=== PATIENT | female | born 1955 | race Caucasian/White ===

== ENCOUNTER 2017-12-23 16:24 | Observation (INO) | payer MEDICARE, MEDICAID ==
[~2017-12-23] VITALS: Ht 154.9 cm; Wt 50.0 kg
[2017-12-23] VITALS (8 sets, daily range): BP systolic 98–111; BP diastolic 47–55; PULSE 63–79; RESP 16–22; TEMP 97.8–97.9; O2SAT 96–99
[~2017-12-23 16:24] MED LIST: BIOT5000 PO; DIAZ5 PO; HYDR10SO PO; LUTE20CA PO; MAGN250T5 PO; MOME17I; NEXI40CA PO; OLIV500C PO; VITA100017 PO; ZOCO40TA PO; [UNRECOGNIZED DRUG - CODE] PO
[2017-12-23] MEDS ORDERED: SODIUM CHLOR 0.9% 1000 ML INJ 1,000 ML IV ONE (17:55)
[2017-12-23] MEDS ORDERED: SODIUM CHLORIDE 0.9% FLUSH 10 ML FLUSH IVF PRN (18:00)
--- NOTE | 2017-12-23 18:10 | PD ---
HPI Chief Complaint: Syncope/Near-Syncope Time Seen by Provider: 17:55 Travel History International Travel<30 days: No Contact w/Intl Traveler<30days: No Traveled to known affect area: No History of Present Illness HPI 62-year-old otherwise healthy female presents to the emergency room for evaluation of syncopal episode that occurred just prior to arrival. Patient was at a restaurant, eating food when she began to feel faint. She told her friends who lowered her to the ground. States she was out for about 2 minutes. When she woke up, she did not remember passing out. She has had sinus headache for the past several weeks with associated upper respiratory infection. She denies hitting her head or any other injuries. Patient denies any cardiac history other than irregular heartbeat and angina. States she had 2 episodes of short, fleeting chest pain this morning but associated it with stress because it occurred while she was in court. She had no shortness of breath, diaphoresis, radiation of symptoms, nausea, vomiting, or abdominal pain at that time. She has no chest pain currently. She denies any chronic medical conditions or daily medications. States she has always had low blood pressure. Patient states she has had a carotid ultrasound a little over one year ago and a stress test within one year. She does admit to smoking marijuana every day. 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) Hepatitis: No Hiatal Hernia: No Immune Disorder: Yes (fibromyalgia) Medical other: Yes (hx of viral menigitis) Musculoskeletal: Yes (arthritis neck and back problems) Neurologic: No Psychiatric: Yes (anxiety) Reproductive: No Respiratory: Yes (copd) Thyroid Disease: No Tetanus Vaccination: Unknown Influenza Vaccination: Yes Past Surgical History Abdominal Surgery: Yes (appendectomy) AICD: No Appendectomy: Yes Gynecologic Surgery: Yes (vulvar removal due to possible cancer cells hysterectomy) Hysterectomy: Yes Joint Replacement: No Oral Surgery: Yes Pacemaker: No Other Surgery: Yes Social History Alcohol Use: Yes (WINE OCC ) Tobacco Use: Yes Substance Use: Yes (MARIJUANA ) Allergies-Medications (Allergen,Severity, Reaction): Coded Allergies: aspirin (Unverified Allergy, Severe, all nsaids rich stomach, 12/23/17) bisacodyl (Unverified Allergy, Severe, pt states all stimulants causes lethargy n/v passing out, 12/23/17) chocolate flavor (Unverified Allergy, Severe, bowel irritation, 12/23/17) lactose (Unverified Allergy, Severe, bowel irritation, 12/23/17) prochlorperazine (Unverified Allergy, Severe, muscles become very rigid especially jaws, 12/23/17) diclofenac (Unverified Adverse Reaction, Intermediate, 12/23/17) etodolac (Unverified Adverse Reaction, Intermediate, 12/23/17) flurbiprofen (Unverified Adverse Reaction, Intermediate, 12/23/17) ibuprofen (Unverified Adverse Reaction, Intermediate, 12/23/17) indomethacin (Unverified Adverse Reaction, Intermediate, 12/23/17) ketoprofen (Unverified Adverse Reaction, Intermediate, 12/23/17) ketorolac (Unverified Adverse Reaction, Intermediate, 12/23/17) naproxen (Unverified Adverse Reaction, Intermediate, 12/23/17) oxaprozin (Unverified Adverse Reaction, Intermediate, 12/23/17) Reported Meds & Prescriptions Reported Meds & Active Scripts Active No Active Prescriptions or Reported Medications Review of Systems Except as stated in HPI: all other systems reviewed are Neg Physical Exam Narrative GENERAL: Well-nourished, well-developed female in no acute distress. Afebrile. Ambulatory. SKIN: Focused skin assessment warm/dry. HEAD: Normocephalic. EYES: No scleral icterus. No injection or drainage. NECK: Supple, trachea midline. No JVD or lymphadenopathy. CARDIOVASCULAR: Regular rate and rhythm without murmurs, gallops, or rubs. RESPIRATORY: Breath sounds equal bilaterally. No accessory muscle use. GASTROINTESTINAL: Abdomen soft, non-tender, nondistended. NEUROLOGICAL: Awake and alert. Motor and sensory grossly within normal limits. Five out of 5 muscle strength in all muscle groups. Normal speech. Data Data Last Documented VS Vital Signs Date Time Temp Pulse Resp B/P (MAP) Pulse Ox O2 Delivery O2 Flow Rate FiO2 12/23/17 19:15 71 16 100/49 (66) 99 Room Air 12/23/17 16:30 97.8 Orders Orders Electrocardiogram (12/23/17 ) Electrocardiogram (12/23/17 17:55) Complete Blood Count With Diff (12/23/17 17:55) Comprehensive Metabolic Panel (12/23/17 17:55) Ckmb (Isoenzyme) Profile (12/23/17 17:55) Troponin I (12/23/17 17:55) Act Partial Throm Time (Ptt) (12/23/17 17:55) Prothrombin Time / Inr (Pt) (12/23/17 17:55) Urinalysis - C+S If Indicated (12/23/17 17:55) Chest, Single Ap (12/23/17 17:55) Ct Brain W/O Iv Contrast(Rout) (12/23/17 17:55) Ecg Monitoring (12/23/17 17:55) Iv Access Insert/Monitor (12/23/17 17:55) Oximetry (12/23/17 17:55) Sodium Chloride 0.9% Flush (Ns Flush) (12/23/17 18:00) Sodium Chlor 0.9% 1000 Ml Inj (Ns 1000 M (12/23/17 17:55) Orthostatic Vital Signs (12/23/17 17:55) Labs Laboratory Tests Test 12/23/17 18:10 White Blood Count 9.4 TH/MM3 Red Blood Count 4.27 MIL/MM3 Hemoglobin 14.0 GM/DL Hematocrit 40.5 % Mean Corpuscular Volume 94.9 FL Mean Corpuscular Hemoglobin 32.8 PG Mean Corpuscular Hemoglobin Concent 34.5 % Red Cell Distribution Width 13.2 % Platelet Count 233 TH/MM3 Mean Platelet Volume 9.6 FL Neutrophils (%) (Auto) 60.9 % Lymphocytes (%) (Auto) 30.1 % Monocytes (%) (Auto) 6.1 % Eosinophils (%) (Auto) 2.0 % Basophils (%) (Auto) 0.9 % Neutrophils # (Auto) 5.7 TH/MM3 Lymphocytes # (Auto) 2.8 TH/MM3 Monocytes # (Auto) 0.6 TH/MM3 Eosinophils # (Auto) 0.2 TH/MM3 Basophils # (Auto) 0.1 TH/MM3 CBC Comment DIFF FINAL Differential Comment Prothrombin Time 10.2 SEC Prothromb Time International Ratio 1.0 RATIO Activated Partial Thromboplast Time 21.5 SEC Blood Urea Nitrogen 12 MG/DL Creatinine 0.65 MG/DL Random Glucose 113 MG/DL Total Protein 6.4 GM/DL Albumin 3.3 GM/DL Calcium Level 7.6 MG/DL Alkaline Phosphatase 71 U/L Aspartate Amino Transf (AST/SGOT) 25 U/L Alanine Aminotransferase (ALT/SGPT) 20 U/L Total Bilirubin 0.2 MG/DL Sodium Level 142 MEQ/L Potassium Level 3.2 MEQ/L Chloride Level 107 MEQ/L Carbon Dioxide Level 29.1 MEQ/L Anion Gap 6 MEQ/L Estimat Glomerular Filtration Rate 92 ML/MIN Total Creatine Kinase 52 U/L Troponin I LESS THAN 0.02 NG/ML MDM Medical Decision Making Medical Screen Exam Complete: Yes Emergency Medical Condition: Yes Medical Record Reviewed: Yes Differential Diagnosis Dehydration, orthostatic hypotension, cardiac etiology, subarachnoid hemorrhage Narrative Course 62-year-old female presents to the emergency room for evaluation of syncopal episode that occurred just prior to arrival. Patient felt faint and was lowered to the ground by her friends before passing out. She denies hitting her head or any other injuries. States she was out for about 2 minutes. No history of the same. Denies significant cardiac history. She only reports fleeting chest pain several hours prior to the incident. No chest pain currently or just prior to syncopal episode. IV access established and basic labs obtained. EKG shows sinus rhythm with a rate of [address] changes, signed off by my attending physician. Patient is slightly hypotensive, at 102/ 47 which she states is her normal. She is given 1 L of fluids. Orthostatic pressures are unremarkable. CBC is unremarkable. CMP only shows mild hypokalemia. Troponin is less than 0.02. Chest x-ray shows hyperinflation consistent with COPD. CT of the brain is negative. Patient remained slightly hypotensive as compared to previous after 1 L of fluids. Patient may have had vasovagal syncope or episodes of dehydration that she will be admitted for syncope workup. She is resistant to admission at first but finally agreed. I spoke to Dr. Land who agrees to admit this patient to her service. Diagnosis Primary Impression: Syncope Qualified Codes: R55 - Syncope and collapse Admitting Information Admitting Physician Requests: Observation Scripts No Active Prescriptions or Reported Meds Condition: Stable Beth Verdugo Dec 23, 2017 18:10
--- NOTE | 2017-12-23 18:26 | RADRPT ---
EXAM DATE/TIME: 12/23/2017 18:12 [facility] COMPARISON: No previous studies available for comparison. INDICATIONS : Syncopal episode today MEDICAL HISTORY : None. SURGICAL HISTORY : None. ENCOUNTER: Initial ACUITY: 1 day PAIN SCORE: 0/10 LOCATION: Bilateral chest FINDINGS: Hyperinflation of the lungs is noted consistent with COPD. The heart is normal. The pulmonary vascula r pattern is normal. No focal infiltrate is noted. CONCLUSION: 1. Hyperinflation of the lungs consistent with COPD. 2. No pulmonary edema or focal pulmonary infiltrate. Castro Rose MD on December 23, 2017 at 18:22 Board Certified Radiologist. This report was verified electronically.
[2017-12-23 18:31] LABS: AUTOMATED NEUTROPHIL # 5.7 TH/MM3 (1.8-7.7); BASOPHIL # 0.1 TH/MM3 (0-0.2); BASOPHIL % 0.9 % (0.0-2.0); EOSINOPHIL # 0.2 TH/MM3 (0-0.4); HEMATOCRIT 40.5 % (35.0-46.0); LYMPH % 30.1 % (9.0-44.0); LYMPHOCYTE # 2.8 TH/MM3 (1.0-4.8); MEAN CELL VOLUME 94.9 FL (80.0-100.0); MEAN CORPUSCULAR HEMOGLOBIN 32.8 PG (27.0-34.0); MEAN CORPUSCULAR HGB CONC 34.5 % (32.0-36.0); MEAN PLATELET VOLUME 9.6 FL (7.0-11.0); MONO % 6.1 % (0.0-8.0); MONOCYTE # 0.6 TH/MM3 (0-0.9); NEUT % 60.9 % (16.0-70.0); PLATELET COUNT 233 TH/MM3 (150-450); RED BLOOD COUNT 4.27 MIL/MM3 (4.00-5.30); RED CELL DISTRIBUTION WIDTH 13.2 % (11.6-17.2); WHITE BLOOD COUNT 9.4 TH/MM3 (4.0-11.0)
[2017-12-23 18:43] LABS: PROTHROMBIN TIME - PATIENT 10.2 SEC (9.8-11.6)
[2017-12-23 18:49] LABS: ALBUMIN 3.3 GM/DL (3.4-5.0); ALKALINE PHOSPHATASE 71 U/L (45-117); ALT (GPT) 20 U/L (10-53); AST (GOT) 25 U/L (15-37); BICARBONATE 29.1 MEQ/L (21.0-32.0); BLOOD UREA NITROGEN 12 MG/DL (7-18); CALCIUM 7.6 MG/DL (8.5-10.1); CHLORIDE 107 MEQ/L (98-107); CREATININE 0.65 MG/DL (0.50-1.00); GLOMERULAR FILTRATION RATE 92 ML/MIN (>89); GLUCOSE,RANDOM 113 MG/DL (74-106); SODIUM (NA) 142 MEQ/L (136-145); TOTAL BILIRUBIN ADULT 0.2 MG/DL (0.2-1.0); TOTAL PROTEIN 6.4 GM/DL (6.4-8.2); TROPONIN I LESS THAN 0.02 NG/ML (0.02-0.05)
--- NOTE | 2017-12-23 18:54 | RADRPT ---
EXAM DATE/TIME: 12/23/2017 18:37 [facility] COMPARISON: No previous studies available for comparison. INDICATIONS : Syncopal episode,headache RADIATION DOSE: 56.35 CTDIvol (mGy) MEDICAL HISTORY : Cardiovascular disease. Chronic obstructive pulmonary disease. SURGICAL HISTORY : Hysterectomy. ENCOUNTER: Initial ACUITY: 1 day PAIN SCALE: 5/10 LOCATION: cranial TECHNIQUE: Multiple contiguous axial images were obtained of the head. Using automated exposure control and adj ustment of the mA and/or kV according to patient size, radiation dose was kept as low as reasonably a chievable to obtain optimal diagnostic quality images. DICOM format image data is available electro nically for review and comparison. FINDINGS: CEREBRUM: The ventricles are normal for age. No evidence of midline shift, mass lesion, hemorrhage or acute in farction. No extra-axial fluid collections are seen. POSTERIOR FOSSA: The cerebellum and brainstem are intact. The 4th ventricle is midline. The cerebellopontine angle i s unremarkable. EXTRACRANIAL: The visualized portion of the orbits is intact. SKULL: The calvaria is intact. No evidence of skull fracture. CONCLUSION: No acute disease. Castro Rose MD on December 23, 2017 at 18:51 Board Certified Radiologist. This report was verified electronically.
[2017-12-23] MEDS ORDERED: SODIUM CHLORIDE 0.9% FLUSH 10 ML FLUSH IV FLUSH PRN (21:15)
[2017-12-23] MEDS ORDERED: POTASSIUM CHLORIDE 10 MEQ CONTROLLED RELEASE TAB PO ONE (21:15)
[2017-12-23] MEDS ORDERED: RESP: ALBUTEROL 2.5 MG/IPRATROPIUM 0.5 MG NEB (PRN) NEB (21:15)
--- NOTE | 2017-12-23 21:16 | EKG ---
Date Performed: 12/23/2017 Time Performed: 16:38:28 PTAGE: 62 years EKG: Sinus rhythm POSSIBLE RIGHT ATRIAL ENLARGEMENT INCOMPLETE RIGHT BUNDLE BRANCH BLOCK BORDERLINE ECG No significant change from prior electrocardiogram. PREVIOUS TRACING : 11/29/2014 10.52 DOCTOR: Mark Florence Interpretating Date/Time 12/23/2017 21:16:22
[2017-12-23] MEDS: HEPARIN SODIUM - SQ 10,000 UNITS/ML VIAL SQ SCH (21:39)
[2017-12-23 21:53] LABS: BILIRUBIN, URINE NEG (NEG); BLOOD, URINE NEG (NEG); GLUCOSE,URINE NEG (NEG); KETONE, URINE NEG (NEG); MUCUS URINE FEW /lpf (OCC); NITRITE,URINE NEG (NEG); URINE COLOR LIGHT-YELLOW (YELLW/STRAW); URINE LEUKOCYTE ESTERASE NEG (NEG)
[2017-12-23] MEDS ORDERED: SODIUM CHLOR 0.9% 1000 ML INJ 1,000 ML IV SCH (22:00)
--- NOTE | 2017-12-23 22:01 | HHI.HP ---
[facility] Service [facility] Primary Care Physician Erika Horner M.D. Admission Diagnosis syncope Diagnoses: Travel History International Travel<30 Days: No Contact w/Intl Traveler <30 Da: No Traveled to Known Affected Are: No History of Present Illness 62-year-old female with a past medical history significant for unspecified irregular heart beat, angina and hyperlipidemia presents to the emergency department for evaluation of a syncopal episode. The patient reports over the last year she is a part approximately 2-3 of these episodes where she feels dizzy, feels as though the room is swaying around her, and has to lie down for approximately an hour until she feels like herself again. Today, the patient was sitting on a stool at a friend's birthday democrat after having 2 sips of alcohol when she turned white, felt lightheaded/dizzy and slumped to the ground of the stool. She was caught by a friend. She did not suffer head trauma. Positive loss of consciousness. She has no memory of the event. She denies urinary/fecal incontinence. The episode was followed by a couple minutes of confusion. She does have a history of a URI with diarrhea that stopped 2 days ago. She also reports persistent dizziness with horizontal head movement. Review of Systems Except as stated in HPI: all other systems reviewed are Neg Past Family Social History Past Medical History Irregular heartbeat, unspecified - lab director is Dr. Lopez Angina Hyperlipidemia, noncompliant with statin Past Surgical History Hysterectomy Tonsillectomy Appendectomy Reported Medications Reported Meds & Active Scripts Active No Active Prescriptions or Reported Medications Allergies: Coded Allergies: aspirin (Unverified Allergy, Severe, all nsaids rich stomach, 12/23/17) bisacodyl (Unverified Allergy, Severe, pt states all stimulants causes lethargy n/v passing out, 12/23/17) chocolate flavor (Unverified Allergy, Severe, bowel irritation, 12/23/17) lactose (Unverified Allergy, Severe, bowel irritation, 12/23/17) prochlorperazine (Unverified Allergy, Severe, muscles become very rigid especially jaws, 12/23/17) diclofenac (Unverified Adverse Reaction, Intermediate, 12/23/17) etodolac (Unverified Adverse Reaction, Intermediate, 12/23/17) flurbiprofen (Unverified Adverse Reaction, Intermediate, 12/23/17) ibuprofen (Unverified Adverse Reaction, Intermediate, 12/23/17) indomethacin (Unverified Adverse Reaction, Intermediate, 12/23/17) ketoprofen (Unverified Adverse Reaction, Intermediate, 12/23/17) ketorolac (Unverified Adverse Reaction, Intermediate, 12/23/17) naproxen (Unverified Adverse Reaction, Intermediate, 12/23/17) oxaprozin (Unverified Adverse Reaction, Intermediate, 12/23/17) Family History Mother with diabetes mellitus. Social History Smokes approximately three quarters of a pack per day. Positive marijuana. Occasional alcohol. Denies other illicit drugs. Physical Exam Vital Signs Vital Signs Date Time Temp Pulse Resp B/P (MAP) Pulse Ox O2 Delivery O2 Flow Rate FiO2 12/23/17 21:49 12/23/17 20:00 74 16 106/55 (72) 99 Room Air 12/23/17 19:15 71 16 100/49 (66) 99 Room Air 12/23/17 18:05 74 18 98/49 (65) 77 17 105/54 (71) 85 20 109/52 (71) 12/23/17 18:03 96 Room Air 12/23/17 18:00 72 16 109/52 (71) 99 Room Air 12/23/17 17:30 74 22 98/49 (65) 99 12/23/17 16:30 97.8 79 18 102/47 (65) 99 Physical Exam GENERAL: Thin, female sitting up in bed SKIN: No rashes, ecchymoses or lesions. Cool and dry. HEAD: Atraumatic. Normocephalic. No temporal or scalp tenderness. EYES: Pupils equal round and reactive. Extraocular motions intact. No scleral icterus. No injection or drainage. ENT: Nose without bleeding, purulent drainage or septal hematoma. Throat without erythema, tonsillar hypertrophy or exudate. Uvula midline. Airway patent. NECK: Trachea midline. No JVD or lymphadenopathy. Supple, nontender, no meningeal signs. CARDIOVASCULAR: Regular rate and rhythm without murmurs, gallops, or rubs. RESPIRATORY: Clear to auscultation. Breath sounds equal bilaterally. No wheezes , rales, or rhonchi. GASTROINTESTINAL: Abdomen soft, non-tender, nondistended. No hepato-splenomegaly , or palpable masses. No guarding. MUSCULOSKELETAL: Extremities without clubbing, cyanosis, or edema. No joint tenderness, effusion, or edema noted. No calf tenderness. NEUROLOGICAL: Awake and alert. Cranial nerves II through XII intact. Motor and sensory grossly within normal limits. Normal speech. Laboratory Laboratory Tests Test 12/23/17 18:10 12/23/17 21:30 White Blood Count 9.4 Red Blood Count 4.27 Hemoglobin 14.0 Hematocrit 40.5 Mean Corpuscular Volume 94.9 Mean Corpuscular Hemoglobin 32.8 Mean Corpuscular Hemoglobin Concent 34.5 Red Cell Distribution Width 13.2 Platelet Count 233 Mean Platelet Volume 9.6 Neutrophils (%) (Auto) 60.9 Lymphocytes (%) (Auto) 30.1 Monocytes (%) (Auto) 6.1 Eosinophils (%) (Auto) 2.0 Basophils (%) (Auto) 0.9 Neutrophils # (Auto) 5.7 Lymphocytes # (Auto) 2.8 Monocytes # (Auto) 0.6 Eosinophils # (Auto) 0.2 Basophils # (Auto) 0.1 CBC Comment DIFF FINAL Differential Comment Prothrombin Time 10.2 Prothromb Time International Ratio 1.0 Activated Partial Thromboplast Time 21.5 Blood Urea Nitrogen 12 Creatinine 0.65 Random Glucose 113 Total Protein 6.4 Albumin 3.3 Calcium Level 7.6 Alkaline Phosphatase 71 Aspartate Amino Transf (AST/SGOT) 25 Alanine Aminotransferase (ALT/SGPT) 20 Total Bilirubin 0.2 Sodium Level 142 Potassium Level 3.2 Chloride Level 107 Carbon Dioxide Level 29.1 Anion Gap 6 Estimat Glomerular Filtration Rate 92 Total Creatine Kinase 52 Troponin I LESS THAN 0.02 Result Diagram: 12/23/17180912/23/171809 Caprini VTE Risk Assessment Caprini VTE Risk Assessment: Mod/High Risk (score >= 2) Caprini Risk Assessment Model Point Value = 1 Point Value = 2 Point Value = 3 Point Value = 5 Age 41-60 Minor surgery BMI > 25 kg/m2 Swollen legs Varicose veins or History of unexplained or recurrent spontaneous Oral contraceptives or hormone replacement Sepsis (< 1 month) Serious lung disease, including pneumonia (< 1 month) Abnormal pulmonary function Acute myocardial infarction Congestive heart failure (< 1 month) History of inflammatory bowel disease Medical patient at bed rest Age 61-74 Arthroscopic surgery Major open surgery (> 45 min) Laparoscopic surgery (> 45 min) Malignancy Confined to bed (> 72 hours) Immobilizing plaster cast Central venous access Age >= 75 History of VTE Family history of VTE Factor V Leiden Prothrombin [id number] Lupus anticoagulant Anticardiolipin antibodies Elevated serum homocysteine Heparin-induced thrombocytopenia Other congenital or acquired thrombophilia Stroke (< 1 month) Elective arthroplasty Hip, pelvis, or leg fracture Acute spinal cord injury (< 1 month) Prophylaxis Regimen Total Risk Factor Score Risk Level Prophylaxis Regimen 0-1 Low Early ambulation 2 Moderate Order ONE of the following: *Sequential Compression Device (SCD) *Heparin 5000 units SQ BID 3-4 Higher Order ONE of the following medications: *Heparin 5000 units SQ TID *Enoxaparin/Lovenox 40 mg SQ daily (WT < 150 kg, CrCl > 30 mL/min) *Enoxaparin/Lovenox 30 mg SQ daily (WT < 150 kg, CrCl > 10-29 mL/min) *Enoxaparin/Lovenox 30 mg SQ BID (WT < 150 kg, CrCl > 30 mL/min) AND/OR *Sequential Compression Device (SCD) 5 or more Highest Order ONE of the following medications: *Heparin 5000 units SQ TID (Preferred with Epidurals) *Enoxaparin/Lovenox 40 mg SQ daily (WT < 150 kg, CrCl > 30 mL/min) *Enoxaparin/Lovenox 30 mg SQ daily (WT < 150 kg, CrCl > 10-29 mL/min) *Enoxaparin/Lovenox 30 mg SQ BID (WT < 150 kg, CrCl > 30 mL/min) AND *Sequential Compression Device (SCD) Assessment and Plan Assessment and Plan Assessment/plan: 1. Syncopal event/dizziness Unclear etiology, neurologic versus cardiac Echo pending - patient with history of "irregular heartbeat", denies A. fib, not currently anticoagulated Carotid ultrasound pending Neurology consulted, appreciate recommendations Physical therapy consulted May be secondary to hypotension, although patient states she has chronic hypotension IV fluid hydration FEN Regular diet Electrolytes: s/p repletion of K, f/u BMP NS at 70 cc/hr Heparin Tanya Land MD Dec 23, 2017 22:01
[2017-12-24 02:00] VITALS: PULSE 68
[2017-12-24] MEDS ORDERED: ACETAMINOPHEN/HYDROcodone 325 MG/5 MG TAB PO ONE (02:00)
[2017-12-24] MEDS ORDERED: CALCIUM CARBONATE 500 MG CHEWABLE TAB CHEW ONE (04:15)
[2017-12-24 05:22] VITALS: BP 99/45; PULSE 60; RESP 18; TEMP 97.9; O2SAT 97
[2017-12-24] MEDS: HEPARIN SODIUM - SQ 10,000 UNITS/ML VIAL SQ SCH (06:15)
[2017-12-24 07:58] VITALS: BP_SYST 103; BP_SYST 108; BP_SYST 109; BP_DIAS 46; BP_DIAS 53; BP_DIAS 55; PULSE 60; RESP 19; TEMP 98; O2SAT 98
[2017-12-24] MEDS ORDERED: SODIUM CHLORIDE 0.9% FLUSH 10 ML FLUSH IV FLUSH SCH (09:00)
--- NOTE | 2017-12-24 09:35 | RADRPT ---
EXAM DATE/TIME: 12/24/2017 08:54 [facility] COMPARISON: No previous studies available for comparison. INDICATIONS : Syncope. MEDICAL HISTORY : Chronic obstructive pulmonary disease. Gastroesophageal reflux disease. Alzheimer's. Bilateral catara cts. Irregular heartbeat. Arthritis. Anxiety. Hep C. Uvula Cancer. Chemotherapy. Fibromyalgia. Blood transfusion. Hyperlipidemia. SURGICAL HISTORY : Hysterectomy. Appendectomy. Tonsillectomy. ENCOUNTER: Initial ACUITY: 1 day PAIN SCORE: 0/10 LOCATION: Bilateral neck PEAK SYSTOLIC VELOCITIES (cm/sec): ICA/CCA RATIO: Right: 1.3 Left: 0.9 ICA: Right: 108 Left: 89 CCA: Right: 83 Left: 98 ECA: Right: 79 Left: 108 VERTEBRAL: Right: 63 antegrade Left: 71 antegrade Elevated flow velocities and ICA/CCA ratios have been found to correlate with increased degrees of vessel stenosis, calculated as percentage of diameter relative to a normal segment of distal ICA/CCA FINDINGS: RIGHT CAROTID: No significant stenosis is visualized. Mild plaque is present in the carotid bulb. The waveforms are within normal limits. LEFT CAROTID: No significant stenosis is visualized. Mild plaque is present in the carotid bulb. The waveforms are within normal limits. VERTEBRAL ARTERIES: Antegrade flow is seen in both vertebral arteries. MISCELLANEOUS: None. CONCLUSION: Mild plaque with no evidence of stenosis. Akbar Shaw MD on December 24, 2017 at 9:27 Board Certified Radiologist. This report was verified electronically.
--- NOTE | 2017-12-24 09:42 | HHI.PR ---
Subjective Remarks Follow up for syncope. Patient is currently doing well. No fever, chills. Ambulating, tolerating diet well. Objective Vitals Vital Signs Date Time Temp Pulse Resp B/P (MAP) Pulse Ox O2 Delivery O2 Flow Rate FiO2 12/24/17 07:58 98.0 60 19 103/46 (65) 98 108/53 (71) 109/55 (73) 12/24/17 05:22 97.9 60 18 99/45 (63) 97 12/24/17 02:00 68 12/23/17 23:18 97.9 63 18 111/54 (73) 98 109/55 (73) 12/23/17 21:49 12/23/17 20:00 74 16 106/55 (72) 99 Room Air 12/23/17 19:15 71 16 100/49 (66) 99 Room Air 12/23/17 18:05 74 18 98/49 (65) 77 17 105/54 (71) 85 20 109/52 (71) 12/23/17 18:03 96 Room Air 12/23/17 18:00 72 16 109/52 (71) 99 Room Air 12/23/17 17:30 74 22 98/49 (65) 99 12/23/17 16:30 97.8 79 18 102/47 (65) 99 I/O 12/23/17 12/23/17 12/23/17 12/24/17 12/24/17 12/24/17 07:00 15:00 23:00 07:00 15:00 23:00 Intake Total 1000 ml 600 ml Balance 1000 ml 600 ml Intake Oral 600 ml IV Total 1000 ml # Voids 2 Result Diagram: 12/23/17180912/23/171809 Imaging Last Impressions Carotid Artery Ultrasound 12/24/17 0000 Signed Impressions: Service Date/Time: December 08:54 - CONCLUSION: Mild plaque with no evidence of stenosis. Akbar Shaw MD Head CT [id number]/23/171754 Signed Impressions: Service Date/Time: Saturday, December 23, 2017 18:37 - CONCLUSION: No acute disease. Castro Rose MD Chest X-Ray [id number]/23/171754 Signed Impressions: Service Date/Time: Saturday, December 23, 2017 18:12 - CONCLUSION: 1. Hyperinflation of the lungs consistent with COPD. 2. No pulmonary edema or focal pulmonary infiltrate. Castro Rose MD Objective Remarks GENERAL: AOX3 NAD. SKIN: Warm and dry. HEAD: Normocephalic. EYES: No scleral icterus. No injection or drainage. NECK: Supple, trachea midline. No JVD or lymphadenopathy. CARDIOVASCULAR: Regular rate and rhythm without murmurs, gallops, or rubs. RESPIRATORY: Breath sounds equal bilaterally. No accessory muscle use. GASTROINTESTINAL: Abdomen soft, non-tender, nondistended. MUSCULOSKELETAL: No cyanosis, or edema. BACK: Nontender without obvious deformity. No CVA tenderness. Procedures None. A/P Problem List: (1) Syncope ICD Code: R55 - Syncope and collapse Assessment and Plan Syncope - Patient recent had diarrhea and she did not eat or drink well. - Syncope is likely due to hypovolemia. - CT head which is not usually necessary for syncope work up is negative. Carotid US is also negative. - CXR shows hyperinflation. - Mild hypokalemia - Likely due to recent diarrhea - Will replace with PO KCL Full code. Discharge patient to home Condition on discharge: Improved Regular Diet as tolerated Ad Samara activity Rx written: K-tab 20meq BID X 3 days. Follow-up with primary care physician within one week. BMP in one week. Jasen Ng DO Dec 24, 2017 09:42
[2017-12-24] MEDS ORDERED: POTA1TAB4 PO (09:44)
== END 2017-12-24 10:55 | disposition home or self-care (01) ==
LOC: NEPC 16:24 → NEDA 20:19 → NEPHCDU 21:51
PROVIDERS: ADMIT Hospitalist; ATTEND Hospitalist
DX: R55 Syncope and collapse (principal); E87.6 Hypokalemia; E86.1 Hypovolemia; R19.7 Diarrhea, unspecified; R07.9 Chest pain, unspecified; I49.9 Cardiac arrhythmia, unspecified; E78.00 Pure hypercholesterolemia, unspecified; J44.9 Chronic obstructive pulmonary disease, unspecified; R11.0 Nausea; G62.9 Polyneuropathy, unspecified; M79.7 Fibromyalgia; K21.9 Gastro-esophageal reflux disease without esophagitis; R94.31 Abnormal electrocardiogram [ECG] [EKG]; Z87.11 Personal history of peptic ulcer disease
CPT/HCPCS: 70450; 71045; 80053; 81001; 82550; 84484; 85025; 85610; 85730; 93005; 93880; 96360; 96361; 96372; 97161; 99285; G0378; G8987; G8988; J1644; J7030

== ENCOUNTER 2018-03-21 12:37 | Emergency (ER) | payer MEDICARE, MEDICAID ==
[~2018-03-21 12:37] MED LIST changes: -BIOT5000 PO; -DIAZ5 PO; -HYDR10SO PO; -LUTE20CA PO; -MAGN250T5 PO; -MOME17I; -NEXI40CA PO; -OLIV500C PO; +POTA1TAB4 PO; -VITA100017 PO; -ZOCO40TA PO; -[UNRECOGNIZED DRUG - CODE] PO
[2018-03-21 12:52] VITALS: BP 122/57; PULSE 75; RESP 16; TEMP 98.2; O2SAT 99
[2018-03-21] MEDS ORDERED: SODIUM CHLORIDE 0.9% FLUSH 10 ML FLUSH IVF PRN (14:15)
[2018-03-21] MEDS ORDERED: SODIUM CHLOR 0.9% 1000 ML INJ 1,000 ML IV ONE (14:15)
[2018-03-21] MEDS ORDERED: DEXAMETHASONE SOD PHOS 20 MG/5 ML VIAL IV PUSH ONE (14:15)
[2018-03-21] MEDS: RESP: ALBUTEROL 2.5 MG/IPRATROPIUM 0.5 MG NEB (SCH) INH ×2 (14:46→14:47)
--- NOTE | 2018-03-21 14:49 | PD ---
HPI Chief Complaint: Cold / Flu Symptoms Time Seen by Provider: 14:03 Travel History International Travel<30 days: No Contact w/Intl Traveler<30days: No Traveled to known affect area: No History of Present Illness HPI 62-year-old female presents emergency department with complaints of 10 weeks of "the flu". She states recurrent episodes of upper respiratory symptoms including cough, wheezing, which her primary care physician has repeatedly treated with Flonase, Augmentin, and Bromfed cough medicine. Patient is a long-term smoker and knows that she has COPD and emphysema. She has used Advair once in the past when she was sick, but currently uses no form of inhaler, or COPD treatment. Patient has not been seen by wine specialist. Patient states her cough is productive of white sputum. She denies fever, chills, sore throat or postnasal drip. She does have ear pressure bilaterally. Patient was called in a prescription for Augmentin, Bromfed, and Flonase yesterday by her PCP. She is here because she cannot sleep at night secondary to her cough and wheeze. She denies nausea, vomiting or heartburn. She has multiple allergies including aspirin, bisacodyl, chocolate, diclofenac, etodolac , flurbiprofen, ibuprofen, indomethacin, ketoprofen, ketorolac, lactulose, Naprosyn, oxaprozin, and prochlorperazine. PFSH Past Medical History Arthritis: Yes Blood Disorders: No Heart Rhythm Problems: Yes (IRREGULAR HEART BEAT ) Cancer: Yes (Hep C., uvula) Cardiovascular Problems: Yes High Cholesterol: Yes Chemotherapy: Yes (pt states she had chemo for Hep C in [id number]) Chest Pain: Yes COPD: Yes Diabetes: No Diminished Hearing: No Endocrine: No Gastrointestinal Disorders: Yes (reflux hx of stomach ulcer problems with nausea) GERD: Yes Genitourinary: Yes (spastic bladder) Hepatitis: No Hiatal Hernia: No Immune Disorder: Yes (fibromyalgia) Musculoskeletal: Yes (fibromyalgia, arthritis neck and back problems) Neurologic: Yes (alzheimers) Psychiatric: Yes (anxiety) Reproductive: No Respiratory: Yes (copd) Thyroid Disease: No Past Surgical History Abdominal Surgery: Yes (appendectomy) AICD: No Appendectomy: Yes Gynecologic Surgery: Yes (vulvar removal due to possible cancer cells hysterectomy) Hysterectomy: Yes Joint Replacement: No Oral Surgery: Yes Pacemaker: No Other Surgery: Yes Social History Alcohol Use: Yes (WINE OCC ) Tobacco Use: Yes Substance Use: Yes (MARIJUANA daily) Allergies-Medications (Allergen,Severity, Reaction): Coded Allergies: aspirin (Unverified Allergy, Severe, all nsaids rich stomach, 12/23/17) bisacodyl (Unverified Allergy, Severe, pt states all stimulants causes lethargy n/v passing out, 12/23/17) chocolate flavor (Unverified Allergy, Severe, bowel irritation, 12/23/17) lactose (Unverified Allergy, Severe, bowel irritation, 12/23/17) prochlorperazine (Unverified Allergy, Severe, muscles become very rigid especially jaws, 12/23/17) diclofenac (Unverified Adverse Reaction, Intermediate, 12/23/17) etodolac (Unverified Adverse Reaction, Intermediate, 12/23/17) flurbiprofen (Unverified Adverse Reaction, Intermediate, 12/23/17) ibuprofen (Unverified Adverse Reaction, Intermediate, 12/23/17) indomethacin (Unverified Adverse Reaction, Intermediate, 12/23/17) ketoprofen (Unverified Adverse Reaction, Intermediate, 12/23/17) ketorolac (Unverified Adverse Reaction, Intermediate, 12/23/17) naproxen (Unverified Adverse Reaction, Intermediate, 12/23/17) oxaprozin (Unverified Adverse Reaction, Intermediate, 12/23/17) Reported Meds & Prescriptions Reported Meds & Active Scripts Active K-Tab (Potassium Chloride) 20 Meq Tab 20 Meq PO BID Review of Systems Except as stated in HPI: all other systems reviewed are Neg General / Constitutional: No: Fever, Chills Eyes: No: Visual changes HENT: Positive: Headaches, Rhinitis, Rhinorrhea, Congestion, Earache, No: Vertigo, Lightheadedness, Sore Throat, Nosebleed, Neck Stiffness, Neck Pain, Dental Difficulties, Ear Discharge Cardiovascular: Positive: Dyspnea on exertion, No: Chest Pain or Discomfort, Palpitations, Irregular Rhythm, Tachycardia Respiratory: Positive: Cough, Shortness of Breath, Wheezing, No: Sneezing, Orthopnea, Hemoptysis, Stridor, Night Sweats, Pleuritic Pain Gastrointestinal: No: Abdominal Pain Genitourinary: No: Dysuria Musculoskeletal: No: Pain Skin: No Rash Neurologic: No: Weakness Psychiatric: No: Depression Endocrine: No: Polydipsia Hematologic/Lymphatic: No: Easy Bruising Physical Exam Narrative GENERAL: Patient is thin and in mild distress. She has a wet cough with audible wheezing. SKIN: Warm and dry. Normal color. Normal turgor HEAD: Atraumatic. Normocephalic. EYES: Pupils equal and round. No scleral icterus. No injection or drainage. ENT: No nasal bleeding or discharge. Mucous membranes pink and moist. TMs are somewhat dull bilaterally but otherwise unremarkable. No sinus tenderness to palpation. Posterior pharynx is unremarkable. Airway is patent. NECK: Trachea midline. Supple and nontender. CARDIOVASCULAR: Regular rate and rhythm. RESPIRATORY: No accessory muscle use. Moderate wheezes and mild rales throughout to auscultation. Breath sounds equal bilaterally. GASTROINTESTINAL: Abdomen soft, non-tender, nondistended. Hepatic and splenic margins not palpable. MUSCULOSKELETAL: Extremities without clubbing, cyanosis, or edema. No obvious deformities. NEUROLOGICAL: Awake and alert. No obvious cranial nerve deficits. Motor grossly within normal limits. Five out of 5 muscle strength in the arms and legs. Normal speech. PSYCHIATRIC: Appropriate mood and affect; insight and judgment normal. Data Data Last Documented VS Vital Signs Date Time Temp Pulse Resp B/P (MAP) Pulse Ox O2 Delivery O2 Flow Rate FiO2 03/21/18 15:17 75 25 138/63 (88) 100 Room Air 03/21/18 12:52 98.2 Orders Orders Complete Blood Count With Diff (03/21/18 14:13) Comprehensive Metabolic Panel (03/21/18 14:13) Iv Access Insert/Monitor (03/21/18 14:13) Ecg Monitoring (03/21/18 14:13) Oximetry (03/21/18 14:13) Oxygen Administration (03/21/18 14:13) Chest, Pa & Lat (03/21/18 14:13) Sodium Chloride 0.9% Flush (Ns Flush) (03/21/18 14:15) Albuterol-Ipratropium Neb (Duoneb Neb) (03/21/18 14:15) Sodium Chlor 0.9% 1000 Ml Inj (Ns 1000 M (03/21/18 14:15) Dexamethasone Inj (Decadron Inj) (03/21/18 14:15) Labs Laboratory Tests Test 03/21/18 15:08 White Blood Count 5.1 TH/MM3 Red Blood Count 4.40 MIL/MM3 Hemoglobin 14.0 GM/DL Hematocrit 41.2 % Mean Corpuscular Volume 93.6 FL Mean Corpuscular Hemoglobin 31.8 PG Mean Corpuscular Hemoglobin Concent 34.0 % Red Cell Distribution Width 12.9 % Platelet Count 207 TH/MM3 Mean Platelet Volume 9.0 FL Neutrophils (%) (Auto) 55.9 % Lymphocytes (%) (Auto) 28.9 % Monocytes (%) (Auto) 10.8 % Eosinophils (%) (Auto) 3.4 % Basophils (%) (Auto) 1.0 % Neutrophils # (Auto) 2.8 TH/MM3 Lymphocytes # (Auto) 1.5 TH/MM3 Monocytes # (Auto) 0.5 TH/MM3 Eosinophils # (Auto) 0.2 TH/MM3 Basophils # (Auto) 0.1 TH/MM3 CBC Comment DIFF FINAL Differential Comment Blood Urea Nitrogen 9 MG/DL Creatinine 0.64 MG/DL Random Glucose 91 MG/DL Total Protein 7.4 GM/DL Albumin 3.7 GM/DL Calcium Level 8.8 MG/DL Alkaline Phosphatase 86 U/L Aspartate Amino Transf (AST/SGOT) 25 U/L Alanine Aminotransferase (ALT/SGPT) 25 U/L Total Bilirubin 0.2 MG/DL Sodium Level 142 MEQ/L Potassium Level 4.0 MEQ/L Chloride Level 105 MEQ/L Carbon Dioxide Level 30.4 MEQ/L Anion Gap 7 MEQ/L Estimat Glomerular Filtration Rate 93 ML/MIN [facility] Medical Decision Making Medical Screen Exam Complete: Yes Emergency Medical Condition: Yes Differential Diagnosis Chronic bronchitis. Pneumonia. COPD with acute exacerbation. Wheezing. Narrative Course Patient appears medically stable at time of exam. Labs ordered including CBC, CMP, and chest x-ray is ordered. IV access is obtained the patient is given 10 mg Decadron IV as well as 1000 mL of normal saline bolus. Patient is given a DuoNeb 3. Chest x-ray shows fairly significant COPD without acute infiltrate. CBC is unremarkable. CMP is unremarkable. Patient is felt stable for discharge. Patient will continue the Augmentin as previously prescribed. Patient is started on Combivent metered-dose inhaler 4 times daily. Patient started on Advair 50-250, 1 puff twice daily. Patient is put on prednisone 20 mg daily for the next 7 days. Patient should follow-up with Dr. Greer, the wine specialist. Patient can return if symptoms worsen as needed. Diagnosis Primary Impression: COPD with acute exacerbation Additional Impression: Wheezing Referrals: Charlie Merida MD call for appointment Patient Instructions: COPD (Chronic Obstructive Pulmonary Disease) (ED), General Instructions, How to Stop Smoking (DC), How to Use a Metered-Dose Inhaler (DC) Additional Instructions: Chest x-ray shows fairly significant COPD without acute infiltrate. CBC is unremarkable. CMP is unremarkable. Patient is felt stable for discharge. Patient will continue the Augmentin as previously prescribed. Patient is started on Combivent metered-dose inhaler 4 times daily. Patient started on Advair 50-250, 1 puff twice daily. Patient is put on prednisone 20 mg daily for the next 7 days. Patient should follow-up with Dr. Greer, the wine specialist. Patient can return if symptoms worsen as needed. Disposition: 01 DISCHARGE HOME Condition: Stable Raman Bush Mar 21, 2018 14:49
[2018-03-21 15:17] VITALS: BP 138/63; PULSE 75; RESP 25; O2SAT 100
--- NOTE | 2018-03-21 15:39 | RADRPT ---
EXAM DATE/TIME: 03/21/2018 14:31 [facility] COMPARISON: CHEST SINGLE AP, December 23, 2017, 18:12. INDICATIONS : Cough. Short of breath. MEDICAL HISTORY : Chronic obstructive pulmonary disease. Gastroesophageal reflux disease. Alzheimer's. Bilateral catara cts. Irregular heartbeat. Arthritis. Anxiety. Hep C. Uvula Cancer. Chemotherapy. Fibromyalgia. Blood transfusion. Hyperlipidemia. SURGICAL HISTORY : Hysterectomy. Appendectomy. Tonsillectomy. ENCOUNTER: Initial ACUITY: 4 - 6 days PAIN SCORE: 0/10 LOCATION: Bilateral chest FINDINGS: The heart size is normal. The lungs are hyperinflated. There is mild prominence of the interstitium w hich may be chronic. No focal alveolar consolidation is seen. No effusion is seen. CONCLUSION: COPD with prominence of the interstitial markings which appear chronic. Ron Escobar MD on March 21, 2018 at 15:35 Board Certified Radiologist. This report was verified electronically.
[2018-03-21 15:44] LABS: AUTOMATED NEUTROPHIL # 2.8 TH/MM3 (1.8-7.7); BASOPHIL # 0.1 TH/MM3 (0-0.2); EOSINOPHIL # 0.2 TH/MM3 (0-0.4); EOSINOPHIL % 3.4 % (0.0-4.0); HEMATOCRIT 41.2 % (35.0-46.0); LYMPH % 28.9 % (9.0-44.0); LYMPHOCYTE # 1.5 TH/MM3 (1.0-4.8); MEAN CELL VOLUME 93.6 FL (80.0-100.0); MEAN CORPUSCULAR HEMOGLOBIN 31.8 PG (27.0-34.0); MONO % 10.8 % (0.0-8.0); MONOCYTE # 0.5 TH/MM3 (0-0.9); NEUT % 55.9 % (16.0-70.0); PLATELET COUNT 207 TH/MM3 (150-450); RED CELL DISTRIBUTION WIDTH 12.9 % (11.6-17.2); WHITE BLOOD COUNT 5.1 TH/MM3 (4.0-11.0)
[2018-03-21 16:01] LABS: ALBUMIN 3.7 GM/DL (3.4-5.0); ALT (GPT) 25 U/L (10-53); AST (GOT) 25 U/L (15-37); BICARBONATE 30.4 MEQ/L (21.0-32.0); BLOOD UREA NITROGEN 9 MG/DL (7-18); CALCIUM 8.8 MG/DL (8.5-10.1); CHLORIDE 105 MEQ/L (98-107); CREATININE 0.64 MG/DL (0.50-1.00); GLOMERULAR FILTRATION RATE 93 ML/MIN (>89); GLUCOSE,RANDOM 91 MG/DL (74-106); SODIUM (NA) 142 MEQ/L (136-145)
[2018-03-21 16:03] LABS: ALKALINE PHOSPHATASE 86 U/L (45-117); TOTAL BILIRUBIN ADULT 0.2 MG/DL (0.2-1.0); TOTAL PROTEIN 7.4 GM/DL (6.4-8.2)
[2018-03-21] MEDS ORDERED: PRED20 PO (16:16)
[2018-03-21] MEDS ORDERED: IPRAAER INH (16:16)
[2018-03-21] MEDS ORDERED: ADVA250A INH (16:16)
[2018-03-21 16:33] VITALS: BP 119/59
== END 2018-03-21 16:44 | disposition home or self-care (01) ==
LOC: NEPD 12:37
DX: J44.1 Chronic obstructive pulmonary disease with (acute) exacerbation (principal); M19.90 Unspecified osteoarthritis, unspecified site; M79.7 Fibromyalgia; G30.9 Alzheimer's disease, unspecified; F02.80 Dementia in other diseases classified elsewhere, unspecified severity, without behavioral disturbance, psychotic disturbance, mood disturbance, and anxiety; K21.9 Gastro-esophageal reflux disease without esophagitis; F41.9 Anxiety disorder, unspecified; E78.00 Pure hypercholesterolemia, unspecified; Z86.19 Personal history of other infectious and parasitic diseases
CPT/HCPCS: 71046; 80053; 85025; 94664; 96361; 96374; 99284; J1100; J7030